=== PATIENT | female | born 1940 | race Caucasian/White ===

== ENCOUNTER → 2017-09-05 | Outpatient (CLI) | payer OTHER ==
[~2017-09-05] MED LIST: ACET325T14 PO; AMLO10TA2 PO; CARV-39 PO; CARV6.2512 PO; CHLO25TA PO; CITA10TA8 PO; CLON0.1T12 PO; CLOP75TA PO; CLOP75TA52 PO; FAMO20TA7 PO; FENO48TA16 PO; GLIP-164 PO; HYDR12.58 PO; INSU100V11 SQ; INSU100V8 SQ; LEVO50TA PO; LINA5TAB PO; LOSA100T6 PO; METF100010 PO; OMEP-110 PO; PRAV20TA2 PO; PRIM250T PO; TICA90TA PO; magnesium PO; vit D PO
== END | disposition home or self-care (01) ==
LOC: CVU 13:05
PROVIDERS: ATTEND Internal Medicine Cardiovascular Disease
DX: I08.0 Rheumatic disorders of both mitral and aortic valves (principal); I31.3 Pericardial effusion (noninflammatory); I10 Essential (primary) hypertension; E11.9 Type 2 diabetes mellitus without complications; R60.9 Edema, unspecified
CPT/HCPCS: 93306; 93970

== ENCOUNTER → 2017-10-15 | Outpatient (CLI) | payer OTHER ==
[~2017-10-15] MED LIST changes: +REGADENOSON 0.4 MG/5 ML SYRINGE ONE
== END | disposition home or self-care (01) ==
LOC: CFH 08:03
PROVIDERS: ATTEND Internal Medicine Cardiovascular Disease
DX: I21.09 ST elevation (STEMI) myocardial infarction involving other coronary artery of anterior wall (principal); I10 Essential (primary) hypertension; I25.10 Atherosclerotic heart disease of native coronary artery without angina pectoris; E11.9 Type 2 diabetes mellitus without complications; Z95.1 Presence of aortocoronary bypass graft
CPT/HCPCS: 78452; 93017; A9502; J2785

== ENCOUNTER 2018-06-02 14:47 | Observation (INO) | payer OTHER ==
[~2018-06-02] VITALS: Ht 162.6 cm; Wt 66.7 kg
[~2018-06-02 14:47] MED LIST changes: -AMLO10TA2 PO; +AMLO10TA6 PO; -GLIP-164 PO; +GLIP10TA24 PO; -HYDR12.58 PO; +HYDROCHLOROTH12.5 MG PO; -LOSA100T6 PO; +LOSA100T7 PO; -REGADENOSON 0.4 MG/5 ML SYRINGE ONE
[2018-06-02] MEDS ORDERED: SODIUM CHLORIDE FLUSH 10ML SYR IVF ONE (15:00)
--- NOTE | 2018-06-02 15:10 | NUR ---
PT BIBA FROM HAVING LUNCH AT THE [facility]. PT FELT WEAK AND FELL TO THE FLOOR, DENIES LOC OR HITTING HER HEAD. SHE DOES RECALL ALL EVENTS. PT DID SOIL HERSELF IN STOOL DURING EVENT. DENIES N/V, CP, SOB, BACK PAIN DURING EVENT OR ATT. PT PLACED ON CONT SPO2, CARDIAC, AND BP MONITOR. UPON ARRIVAL PT STATES SHE JUST FEELS A LITTLE SHAKEY NOW, WAS ABLE TO AMBULATE AROUND THE ROOM TO CLEAN HERSELF UP WITH STANDBY ASSISTANCE.
[2018-06-02 15:21] LABS: BASOPHILS # (AUTO) 0.04 x10^3/uL (0-0.1); BASOPHILS % (AUTO) 0 % (0-1); EOSINOPHILS # (AUTO) 0.21 x10^3/uL (0-0.4); EOSINOPHILS % (AUTO) 2 % (1-7); LYMPHOCYTES # (AUTO) 1.46 x10^3/uL (1-3.4); LYMPHOCYTES % (AUTO) 16 % (22-44); MD NO; MEAN CORPUSCULAR HEMOGLOBIN 32.1 pg (27.0-34.8); MEAN CORPUSCULAR HGB CONC 33.4 g/dL (32.4-35.8); MEAN PLATELET VOLUME 9.3 fL (7.4-10.4); MONOCYTES % (AUTO) 7 % (2-9); NEUTROPHILS % (AUTO) 75 % (42-75); PLATELET COUNT 194 x10^3/uL (130-400); RED BLOOD COUNT 3.59 x10^6/uL (3.82-5.3); RED CELL DISTRIBUTION WIDTH 13.7 % (9.6-15.2)
[2018-06-02 15:32] LABS: CHLORIDE 110 mmol/L (98-107)
[2018-06-02 15:43] LABS: ALANINE AMINOTRANSFERASE 23 U/L (12-78); ALBUMIN 3.9 g/dL (3.4-5.0); ALKALINE PHOSPHATASE 54 U/L (45-117); ANION GAP 6 mmol/L (5-15); BILIRUBIN,TOTAL 0.2 mg/dL (0.2-1.0); CALCIUM 8.7 mg/dL (8.5-10.1); CREATININE 2.09 mg/dL (0.55-1.02); TROPONIN I < 0.015 ng/mL (0.000-0.045)
--- NOTE | 2018-06-02 16:18 | NUR ---
PT'S CHART UP FOR RECHECK
[2018-06-02] MEDS ORDERED: SODIUM CHLORIDE 0.9%, 500ML IVBOLUS ONE (17:00)
[2018-06-02] MEDS ORDERED: ONDANSETRON ODT 4 MG PO PRN (17:30)
[2018-06-02] MEDS ORDERED: ONDANSETRON 2MG/ML, 2ML IVPush PRN (17:30)
[2018-06-02] MEDS ORDERED: ACETAMINOPHEN 325 MG TABLET PO PRN (17:30)
[2018-06-02] MEDS: INSULIN GLARGINE 100 UNITS/ML, PEN SQ-INSULIN SCH ×2 (17:30→23:34)
--- NOTE | 2018-06-02 17:52 | NUR ---
report given to lynnette schwartz
[2018-06-02] MEDS: INSULIN LISPRO 100 UNITS/ML, PEN SQ-INSULIN SCH (20:23)
[2018-06-02] MEDS: SODIUM CHLORIDE 0.9% 1,000 ML IV SCH (20:23)
[2018-06-02 20:36] VITALS: BP 170/54
[2018-06-02 20:38] VITALS: BP 157/74
[2018-06-02 20:40] VITALS: BP 172/73
[2018-06-02] MEDS: CARVEDILOL 12.5 MG TABLET PO SCH (21:00)
[2018-06-02] MEDS ORDERED: PRAVASTATIN 20 MG TABLET PO SCH (21:00)
[2018-06-02] MEDS: LACTOBACILLUS CHEW TABLET PO SCH (22:59)
[2018-06-02] MEDS: TICAGRELOR 90 MG TABLET PO SCH (22:59)
[2018-06-02] MEDS: HEPARIN 5,000 UNITS/ML, 1ML SQ SCH (23:00)
[2018-06-03 00:54] VITALS: BP 159/62
[2018-06-03] MEDS: HEPARIN 5,000 UNITS/ML, 1ML SQ SCH ×2 (05:28→14:00)
[2018-06-03] MEDS ORDERED: LEVOTHYROXINE 50 MCG TABLET PO SCH (06:00)
[2018-06-03 06:47] LABS: ANION GAP 5 mmol/L (5-15); CALCIUM 7.8 mg/dL (8.5-10.1); CHLORIDE 115 mmol/L (98-107)
[2018-06-03 06:48] LABS: CREATININE 1.65 mg/dL (0.55-1.02)
[2018-06-03] MEDS: INSULIN LISPRO 100 UNITS/ML, PEN SQ-INSULIN SCH ×3 (07:00→15:54)
[2018-06-03 08:10] LABS: HEMOGLOBIN A1C 7.6 % (4.2-6.3)
[2018-06-03] MEDS: TICAGRELOR 90 MG TABLET PO SCH (08:56)
[2018-06-03] MEDS: LACTOBACILLUS CHEW TABLET PO SCH ×2 (08:56→15:54)
[2018-06-03] MEDS: ISOSORBIDE DINITRATE 10 MG TABLET PO SCH ×2 (08:57→15:54)
[2018-06-03] MEDS: CARVEDILOL 12.5 MG TABLET PO SCH (08:57)
[2018-06-03] MEDS ORDERED: PRIMIDONE 250 MG TABLET PO SCH (09:00)
[2018-06-03] MEDS ORDERED: CHOLECALCIFEROL 1,000 UNIT TABLET PO SCH (09:00)
[2018-06-03] MEDS ORDERED: LOSARTAN 50MG TABLET PO SCH (09:00)
[2018-06-03] MEDS ORDERED: OMEPRAZOLE 20 MG CAPSULE.DR PO SCH (09:00)
[2018-06-03 09:34] VITALS: BP 180/69
[2018-06-03 09:53] VITALS: BP 168/55
[2018-06-03] MEDS: SODIUM CHLORIDE 0.9% 1,000 ML IV SCH (10:33)
[2018-06-03] MEDS ORDERED: ACID1TAB7 PO (12:59)
[2018-06-03] MEDS ORDERED: HYDR-3341 PO (12:59)
[2018-06-03] MEDS ORDERED: ISOS10TA2 PO (12:59)
[2018-06-03 15:53] VITALS: BP 177/61
== END 2018-06-03 16:48 | disposition home or self-care (01) ==
LOC: ED 15:56 → EDIP 17:43 → INTOOBSV 17:43 → 4WST 18:41 → DCLOUNGE 06-03 16:40
PROVIDERS: ADMIT Internal Medicine; ATTEND Internal Medicine
DX: R55 Syncope and collapse (principal); R27.0 Ataxia, unspecified; N18.3 Chronic kidney disease, stage 3 (moderate); I12.9 Hypertensive chronic kidney disease with stage 1 through stage 4 chronic kidney disease, or unspecified chronic kidney disease; E11.65 Type 2 diabetes mellitus with hyperglycemia; E11.22 Type 2 diabetes mellitus with diabetic chronic kidney disease; E11.43 Type 2 diabetes mellitus with diabetic autonomic (poly)neuropathy; E78.5 Hyperlipidemia, unspecified; I25.10 Atherosclerotic heart disease of native coronary artery without angina pectoris; Z79.4 Long term (current) use of insulin; Z87.442 Personal history of urinary calculi; Z90.710 Acquired absence of both cervix and uterus; Z95.1 Presence of aortocoronary bypass graft; Z95.5 Presence of coronary angioplasty implant and graft
CPT/HCPCS: 0399T; 36415; 70450; 80048; 80053; 82962; 83036; 83880; 84484; 85025; 93005; 93306; 96360; 96361; 96372; 97162; 99284; G0378; G8978; G8979; G8980; J1644; J1815; J7030; J7040